=== PATIENT | male | born 1995 | race Caucasian/White ===

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

== ENCOUNTER 2017-05-01 01:08 | Emergency (ER) | payer OTHER ==
[~2017-05-01] VITALS: Ht 190.5 cm; Wt 97.5 kg
[~2017-05-01 01:08] MED LIST: NAPR-682 PO; TRAM1TAB4 PO
[2017-05-01 01:20] VITALS: BP 130/59
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
[2017-05-01 01:40] LABS: BILIRUBIN,URINE NEGATIVE (NEG); GLUCOSE,URINE NEGATIVE (NEG); NITRITE,URINE NEGATIVE (NEG); PROTEIN,URINE 30 mg/dL (NEG-TRACE); UROBILINOGEN,URINE 0.2 mg/dL (0.2 mg/dL)
[2017-05-01 01:46] LABS: BACTERIA,URINE 0 /HPF (0-FEW); RBC,URINE 0 /HPF (0-2); SQUAMOUS EPITHELIAL CELL,UR OCC /LPF; WBC,URINE OCC /HPF (0-4)
== END 2017-05-01 01:50 | disposition other institution (70) ==
LOC: ER 01:08
DX: N48.89 Other specified disorders of penis (principal); Z88.0 Allergy status to penicillin
CPT/HCPCS: 81001; 87491; 87591; 99285-25

== ENCOUNTER 2017-05-15 15:17 | Emergency (ER) | payer OTHER ==
[~2017-05-15] VITALS: Ht 193 cm; Wt 93.0 kg
[2017-05-15 15:22] VITALS: BP 148/70
--- NOTE | 2017-05-15 15:42 | PHYS DOC ---
Past Medical History Past Medical History: No Pertinent History Past Surgical History: No Surgical History Alcohol Use: Occasionally Additional Information: pt reports no ETOH use at this time. Drug Use: Marijuana Social History Narrative: pt reports no drug use at this time. Adult General Chief Complaint Chief Complaint: FOREIGN BODY/EYES HPI HPI Patient is a 21 year old male who presents with sensation of a foreign object in the left upper eyelid. Patient states he was working with metal when he wiped his left eye. He states he got a piece of metal in his left upper eye lid. Patient denies any vision loss. Review of Systems Review of Systems Constitutional: Denies fever or chills [] Eyes: foreign object in the left upper eyelid Denies change in visual acuity, Musculoskeletal: Denies back pain or joint pain [] Integument: Denies rash or skin lesions [] Neurologic: Denies headache, focal weakness or sensory changes [] Allergies Allergies Allergies Coded Allergies Type Severity Reaction Last Updated Verified Penicillins Allergy Intermediate 06/06/16 Yes Physical Exam Physical Exam Constitutional: Well developed, well nourished, no acute distress, non-toxic appearance. [] HENT: Normocephalic, atraumatic, bilateral external ears normal, oropharynx moist, no oral exudates, nose normal. [] Eyes: PERRLA, EOMI, conjunctiva with slight erythema, Left upper eyelid was inverted. A tiny black speck was noted on the inner left upper eyelid. It was removed with a Cotton tipped edge successfully Skin: Warm, dry, no erythema, no rash. [] Back: No tenderness, no CVA tenderness. [] Extremities: No tenderness, no cyanosis, no clubbing, ROM intact, no edema. [] Neurologic: Alert and oriented X 3, normal motor function, normal sensory function, no focal deficits noted. [] Psychologic: Affect normal, judgement normal, mood normal. [] Current Patient Data Vital Signs Vital Signs Date Time Temp Pulse Resp B/P (MAP) Pulse Ox O2 Delivery O2 Flow Rate FiO2 05/15/17 15:22 98.0 78 22 99 Room Air 98.0 EKG EKG [] Radiology/Procedures Radiology/Procedures [] Course & Med Decision Making Course & Med Decision Making Pertinent Labs and Imaging studies reviewed. (See chart for details) Patient is in the ED with concern for a sensation of a foreign object in the left upper eyelid. A black object was removed from the Left upper eyelid. Patient felt better. F/u with eye doctor in one week. Dragon Disclaimer Dragon Disclaimer This electronic medical record was generated, in whole or in part, using a voice recognition dictation system. Departure Departure Impression: Primary Impression: Foreign body of left eye Disposition: HOME, SELF-CARE Condition: STABLE Referrals: NO PCP (PCP) ERAN WHITE MD follow up with the eye doctor provided in one week if symptoms continue Patient Instructions: Eye - Foreign Body Additional Instructions: We removed a foreign body from the left eye. Keep it clean. Follow-up with the provided eye doctor in one week if symptoms continue. Problem Qualifiers Primary Impression: Foreign body of left eye Encounter type: initial encounter Qualified Codes: T15.92XA - Foreign body on external eye, part unspecified, left eye, initial encounter PILY SANDY APRN May 15, 2017 15:42
== END 2017-05-15 15:48 | disposition home or self-care (01) ==
LOC: ER 15:17
DX: T15.12XA Foreign body in conjunctival sac, left eye, initial encounter (principal); Z88.0 Allergy status to penicillin; X58.XXXA Exposure to other specified factors, initial encounter; Y93.89 Activity, other specified; Y99.8 Other external cause status; Y92.89 Other specified places as the place of occurrence of the external cause
CPT/HCPCS: 65205; 99284-25